=== PATIENT | female | born 1960 | race Two or more races ===

== ENCOUNTER 2019-11-04 21:46 | Inpatient (IN) | payer OTHER ==
[~2019-11-04] VITALS: Ht 162.6 cm; Wt 122.9 kg
[2019-11-04] MEDS ORDERED: ONDANSETRON PF 4 MG/2 ML VIAL. IVP ONE (22:15)
[2019-11-04] MEDS ORDERED: fentaNYL PF VIAL 100 MCG/2 ML VIAL IVP ONE (22:15)
[2019-11-04 22:20] LABS: BASO # 0.1 x10^3/uL (0.0-0.2); BASO % 0 % (0-3); EOS # 0.1 x10^3/uL (0.0-0.7); EOS % 1 % (0-3); HEMATOCRIT 38.6 % (36.0-47.0); LYMPH # 1.1 x10^3/uL (1.0-4.8); LYMPH % 9 % (24-48); MEAN CORPUSCULAR HEMOGLOBIN 32 pg (25-35); MEAN CORPUSCULAR HGB CONC 34 g/dL (31-37); MEAN CORPUSCULAR VOLUME 94 fL (79-100); MONO # 0.4 x10^3/uL (0.0-1.1); MONO % 3 % (0-9); NEUT # 10.2 x10^3/uL (1.8-7.7); NEUT % 87 % (31-73); PLATELET COUNT 197 x10^3/uL (140-400); RED BLOOD COUNT 4.12 x10^6/uL (3.50-5.40); RED CELL DISTRIBUTION WIDTH 13.6 % (11.5-14.5); WHITE BLOOD COUNT 11.8 x10^3/uL (4.0-11.0)
[2019-11-04 22:30] LABS: CREATININE 1.3 mg/dL (0.6-1.0); GFR 42.1; POTASSIUM 3.6 mmol/L (3.5-5.1)
[2019-11-04 22:31] LABS: BILIRUBIN,URINE NEGATIVE (NEG); CLARITY,URINE CLOUDY; COLOR,URINE YELLOW; NITRITE,URINE POSITIVE (NEG); PROTEIN,URINE 100 mg/dL (NEG-TRACE)
[2019-11-04 22:33] LABS: ALBUMIN 3.4 g/dL (3.4-5.0); ALBUMIN/GLOBULIN RATIO 0.8 (1.0-1.7); TOTAL BILIRUBIN 0.7 mg/dL (0.2-1.0); TOTAL PROTEIN 7.7 g/dL (6.4-8.2)
[2019-11-04 22:35] LABS: BACTERIA,URINE MANY /HPF (0-FEW); WBC,URINE TNTC /HPF (0-4)
[2019-11-04 22:36] LABS: SQUAMOUS EPITHELIAL CELL,UR MOD /LPF
--- NOTE | 2019-11-04 22:39 | RAD ---
CHEST AP ONLY 11/04/2019 9:53 PM INDICATION: Chest pain COMPARISON: None available TECHNIQUE: Portable frontal view of the chest is provided. FINDINGS: The cardiomediastinal silhouette is within normal limits. There is elevation right hemidiaphragm. Lungs are otherwise clear. There are no significant pleural effusions. There is no pulmonary vascular congestion. No pneumothorax. No suspicious osseous abnormality. IMPRESSION: There is no acute cardiopulmonary process. Electronically signed by: Nguyen Oliver MD (11/04/2019 10:36 PM) [facility]
[2019-11-04 23:00] LABS: % BANDS 9 % (0-9); % BASOS 1 % (0-3); % EOS 3 % (0-5); % LYMPHS 6 % (24-48); % MONOS 3 % (0-10); % SEGS 78 % (35-66); PLT ESTIMATE ADEQUATE (ADEQUATE)
[2019-11-05] MEDS ORDERED: MORPHINE SULFATE 4 MG/ML VIAL. IV ONE
[2019-11-05] MEDS ORDERED: cefTRIAXone IV Push 1 GM VIAL. IVP ONE
[2019-11-05] MEDS ORDERED: ACETAMINOPHEN 500 MG TABLET PO ONE (00:30)
--- NOTE | 2019-11-05 00:46 | RAD ---
EXAM: CT Abdomen and Pelvis without IV contrast CLINICAL HISTORY: Abdominal pain COMPARISON: none TECHNIQUE: Helical CT of the abdomen and pelvis was performed without the administration of IV contrast. Axial, coronal and sagittal reformatted images were generated. ---PQRS compliance statement - One or more of the following individualized dose reduction techniques were utilized for this study: 1. Automated exposure control 2. Adjustment of the mA and/or kV according to patient size 3. Use of iterative reconstruction technique--- FINDINGS: Lack of intravenous contrast limits evaluation of solid organs, vasculature, and lymph nodes. Lower chest: Subtle linear opacities in the lingula likely scarring/atelectasis. Abdomen and pelvis: Liver and biliary system: Hepatic hypoattenuation likely fatty liver. Liver is enlarged measuring approximately 21 cm in length. Cholecystectomy clips are seen. No biliary ductal dilatation. Spleen: Unremarkable Pancreas: Unremarkable Adrenal glands: Unremarkable Kidneys: There is mild infiltration about the right kidney and proximal right ureter. This is nonspecific but pyelonephritis/ureteritis may result in this appearance. This may correlate with urinalysis. No focal renal lesion. No hydronephrosis or hydroureter. Lymph nodes/retroperitoneum: No abdominal or pelvic lymphadenopathy. Vessels: Atherosclerotic calcifications of aorta are seen. Bowel/Peritoneal cavity: Changes of gastric surgery are seen. Moderate colonic stool content. Appendix is normal. No small or large bowel dilatation. No bowel obstruction. No abdominal or pelvic ascites. Abdominal wall: Unremarkable Bladder: Unremarkable Bones: Degenerative changes of the spine are seen. No aggressive osseous lesion. IMPRESSION: Infiltration about the right kidney and proximal right ureter is nonspecific but may be seen with pyelonephritis. This may correlate with urinalysis. Hepatomegaly and hepatic steatosis. No bowel obstruction. Changes of gastric bypass are seen. Electronically signed by: Alvaro Rivera MD (11/05/2019 12:43 AM) [facility]
[2019-11-05] MEDS ORDERED: ONDANSETRON PF 4 MG/2 ML VIAL. IV PRN (01:30)
--- NOTE | 2019-11-05 02:32 | PHYS DOC ---
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 Symptoms began yesterday and gradually progressed. Denies anterior chest pain, SOB, and cough. No abdominal pain, No hematuria, history kidney stones. Patient menopausal. Arrives by EMS[] Review of Systems Review of Systems ROS as per HPI All other systems were reviewed and found to be within normal limits, except as documented in this note. Current Medications Current Medications Current Medications Medications (Trade) Dose Ordered Sig/Margie Start Time Stop Time Status Last Admin Dose Admin Acetaminophen (Tylenol) 1,000 mg 1X ONCE 11/05/19 00:30 11/05/19 00:31 DC 11/05/19 00:19 1,000 MG Ceftriaxone Sodium (Rocephin) 1 gm 1X ONCE 11/05/19 00:00 11/05/19 00:02 DC 11/05/19 00:18 1 GM Fentanyl Citrate (Fentanyl 2ml Vial) 50 mcg 1X ONCE 11/04/19 22:15 11/04/19 22:16 DC 11/04/19 22:12 50 MCG Morphine Sulfate (Morphine Sulfate) 2 mg PRN Q2HR PRN 11/05/19 01:30 11/06/19 01:29 Ondansetron HCl (Zofran) 4 mg PRN Q8HRS PRN 11/05/19 01:30 11/06/19 01:29 Sodium Chloride 1,000 ml @ 125 mls/hr Q8H 11/05/19 01:30 11/06/19 01:29 Allergies Allergies Allergies Coded Allergies Type Severity Reaction Last Updated Verified Penicillins Allergy Unknown Hives. 07/31/15 Yes Physical Exam Physical Exam Constitutional: Well developed, anxiosu, moderate distress secondary to pain. [] HENT: Normocephalic, atraumatic, bilateral external ears normal, oropharynx moist, no oral exudates, nose normal. [] Eyes: PERRLA, EOMI, conjunctiva normal, no discharge. [] Neck: Normal range of motion, no tenderness, supple, no stridor. [] Cardiovascular:Heart rate regular rhythm, no murmur [] Lungs & Thorax: Bilateral breath sounds clear to auscultation [] Abdomen: Bowel sounds normal, soft, R cva tenderness, no masses, no pulsatile masses. [] Skin: Warm, dry, no erythema, no rash. [] Back: No tenderness, no CVA tenderness. [] Extremities: No tenderness, no cyanosis, no clubbing, ROM intact, no edema. [] Neurologic: Alert and oriented X 3, normal motor function, normal sensory function, no focal deficits noted. [] Psychologic: Affect normal, judgement normal, mood normal. [] Current Patient Data Vital Signs Vital Signs Date Time Temp Pulse Resp B/P (MAP) Pulse Ox O2 Delivery O2 Flow Rate FiO2 11/05/19 01:10 100.5 100.5 11/05/19 00:45 88 19 171/68 (102) 96 Room Air Lab Values Laboratory Tests Test 11/04/19 22:05 11/04/19 22:20 White Blood Count 11.8 x10^3/uL (4.0-11.0) H Red Blood Count 4.12 x10^6/uL (3.50-5.40) Hemoglobin 13.0 g/dL (12.0-15.5) Hematocrit 38.6 % (36.0-47.0) Mean Corpuscular Volume 94 fL (79-100) Mean Corpuscular Hemoglobin 32 pg (25-35) Mean Corpuscular Hemoglobin Concent 34 g/dL (31-37) Red Cell Distribution Width 13.6 % (11.5-14.5) Platelet Count 197 x10^3/uL (140-400) Neutrophils (%) (Auto) 87 % (31-73) H Lymphocytes (%) (Auto) 9 % (24-48) L Monocytes (%) (Auto) 3 % (0-9) Eosinophils (%) (Auto) 1 % (0-3) Basophils (%) (Auto) 0 % (0-3) Neutrophils # (Auto) 10.2 x10^3/uL (1.8-7.7) H Lymphocytes # (Auto) 1.1 x10^3/uL (1.0-4.8) Monocytes # (Auto) 0.4 x10^3/uL (0.0-1.1) Eosinophils # (Auto) 0.1 x10^3/uL (0.0-0.7) Basophils # (Auto) 0.1 x10^3/uL (0.0-0.2) Segmented Neutrophils % 78 % (35-66) H Band Neutrophils % 9 % (0-9) Lymphocytes % 6 % (24-48) L Monocytes % 3 % (0-10) Eosinophils % 3 % (0-5) Basophils % 1 % (0-3) Platelet Estimate Adequate (ADEQUATE) Sodium Level 139 mmol/L (136-145) Potassium Level 3.6 mmol/L (3.5-5.1) Chloride Level 102 mmol/L (98-107) Carbon Dioxide Level 28 mmol/L (21-32) Anion Gap 9 (6-14) Blood Urea Nitrogen 18 mg/dL (7-20) Creatinine 1.3 mg/dL (0.6-1.0) H Estimated GFR (Cockcroft-Gault) 42.1 BUN/Creatinine Ratio 14 (6-20) Glucose Level 179 mg/dL (70-99) H Calcium Level 9.0 mg/dL (8.5-10.1) Total Bilirubin 0.7 mg/dL (0.2-1.0) Aspartate Amino Transferase (AST) 30 U/L (15-37) Alanine Aminotransferase (ALT) 34 U/L (14-59) Alkaline Phosphatase 108 U/L (46-116) Troponin I Quantitative < 0.017 ng/mL (0.000-0.055) Total Protein 7.7 g/dL (6.4-8.2) Albumin 3.4 g/dL (3.4-5.0) Albumin/Globulin Ratio 0.8 (1.0-1.7) L Lipase 56 U/L (73-393) L Urine Collection Type Unknown Urine Color Yellow Urine Clarity Cloudy Urine pH 6.0 (<5.0-8.0) Urine Specific [place] 1.020 (1.000-1.030) Urine Protein 100 mg/dL (NEG-TRACE) Urine Glucose (UA) Negative mg/dL (NEG) Urine Ketones (Stick) Negative mg/dL (NEG) Urine Blood Trace (NEG) Urine Nitrite Positive (NEG) Urine Bilirubin Negative (NEG) Urine Urobilinogen Dipstick 1.0 mg/dL (0.2 mg/dL) Urine Leukocyte Esterase Moderate (NEG) Urine RBC 1-2 /HPF (0-2) Urine WBC Tntc /HPF (0-4) Urine Squamous Epithelial Cells Mod /LPF Urine Bacteria Many /HPF (0-FEW) Urine Mucus Mod /LPF Laboratory Tests 11/04/19 22:05 Laboratory Tests 11/04/19 22:05 EKG EKG [] Radiology/Procedures Radiology/Procedures [CT abd/pelvis: R pyelonephriits] Course & Med Decision Making Course & Med Decision Making Pertinent Labs and Imaging studies reviewed. (See chart for details) IVF, abx, pain medications given. Pateint febrile and symptomatic. Will admit to the hospitalist service. ] Dragon Disclaimer Dragon Disclaimer This electronic medical record was generated, in whole or in part, using a voice recognition dictation system. Departure Departure Impression: Primary Impression: Pyelonephritis Disposition: ADMITTED INPATIENT Condition: STABLE Referrals: UNKNOWN PCP NAME (PCP) ENZO ADKINS DO Nov 05, 2019 02:32
[2019-11-05 03:00] VITALS: BP 93/47
[2019-11-05] MEDS: IV NORMAL SALINE 1000ML BAG 1,000 ML IV SCH ×3 (03:28→15:31)
[2019-11-05] MEDS: MORPHINE SULFATE 2 MG/ML VIAL. IV PRN ×2 (03:29→08:32)
--- NOTE | 2019-11-05 03:49 | NUR ---
Delicia to eat healthy Addendum: 11/05/19 at 0356 by FRAN HEDRICK RN Amended: Links added.
[2019-11-05] MEDS ORDERED: MULT-505 PO (04:42)
--- NOTE | 2019-11-05 05:22 | NUR ---
Pt. arrived on unit at 0306 by bed from ER. Pt. is wearing 2l NC and complains of pain being 9/10. Call light within reach with bed in lowest position. Will continue to monitor.
--- NOTE | 2019-11-05 05:52 | EKG ---
[facility] [address] [place] [address] Test Date: 2019-11-04 Test Time: 21:58:18 Pat Name: DIANA RUBY Department: Room: 424 1 Gender: F Portrait Photographer: : 1960 Requested By: ENZO ADKINS Order Number: [id number] Reading MD: Hao Villagomez Measurements Intervals [place] Rate: 79 P: 42 ND: 160 QRS: -19 QRSD: 80 T: 28 QT: 370 QTc: 430 Interpretive Statements SINUS RHYTHM LEFTWARD AXIS INCOMPLETE RIGHT BUNDLE BRANCH BLOCK NON SPECIFIC T ABNORMALITY Electronically Signed On 11-06-2019 10:15:35 CDT by Hao Villagomez
[2019-11-05 07:00] VITALS: BP 104/57
--- NOTE | 2019-11-05 08:46 | PDOC1 ---
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 She called an ambulance last night when she had low-grade fever, chills, sweats, nausea shortness and acute R flank/post chest pain. She had a much higher fever here, T 103 in the ER> her symptoms began yesterday and worsened during the day. Denies anterior chest pain, SOB, and cough. no travel, no cough, no sick contacts Past Medical History Cardiovascular: No pertinent hx Pulmonary: No pertinent hx Hepatobiliary: No pertinent hx Psych: No pertinent hx ENT: No pertinent hx Renal/: No pertinent hx Endocrine: Other (obese, had iron deficiency post op) Dermatology: No pertinent hx Past Surgical History Past Surgical History: Other (gastic bypass) Social History Smoke: No ALCOHOL: none Drugs: None Current Medications Current Medications Current Medications Fentanyl Citrate (Fentanyl 2ml Vial) 50 mcg 1X ONCE IVP Last administered on 11/04/19at 22:12; Start 11/04/19 at 22:15; Stop 11/04/19 at 22:16; Status DC Ondansetron HCl (Zofran) 4 mg 1X ONCE IVP Last administered on 11/04/19at 22:11; Start 11/04/19 at 22:15; Stop 11/04/19 at 22:16; Status DC Morphine Sulfate (Morphine Sulfate) 2 mg 1X ONCE IV Last administered on 11/05/19at 00:19; Start 11/05/19 at 00:00; Stop 11/05/19 at 00:02; Status DC Ceftriaxone Sodium (Rocephin) 1 gm 1X ONCE IVP Last administered on 11/05/19at 00:18; Start 11/05/19 at 00:00; Stop 11/05/19 at 00:02; Status DC Acetaminophen (Tylenol) 1,000 mg 1X ONCE PO Last administered on 11/05/19at 00:19; Start 11/05/19 at 00:30; Stop 11/05/19 at 00:31; Status DC Ondansetron HCl (Zofran) 4 mg PRN Q8HRS PRN IV NAUSEA/VOMITING; Start 11/05/19 at 01:30; Stop 11/06/19 at 01:29 Morphine Sulfate (Morphine Sulfate) 2 mg PRN Q2HR PRN IV PAIN Last administered on 11/05/19at 03:29; Start 11/05/19 at 01:30; Stop 11/06/19 at 01:29 Sodium Chloride 1,000 ml @ 125 mls/hr Q8H IV Last administered on 11/05/19at 03:28; Start 11/05/19 at 01:30; Stop 11/06/19 at 01:29 Active Scripts Active Reported Once Daily (Multivitamin) 1 Each Tablet 1 Tab PO DAILY 30 Days Allergies Allergies: Coded Allergies: Penicillins (Verified Allergy, Unknown, Hives., 07/31/15) ROS General: YES: Chills, Fatigue, Malaise, Appetite PSYCHOLOGICAL ROS: YES: Sleep disturbances; No: Anxiety, Behavioral Disorder, Concentration difficultie, Decreased libido, Depression, Disorientation, Hallucinations, Hostility, Irritablity, Memory difficulties, Mood Swings, Obsessive thoughts, Physical abuse, Sexual abuse, Suicidal ideation, Other Eyes: No Blurry vision, No Decreased vision, No Double vision, No Dry eyes, No Excessive tearing, No Eye Pain, No Itchy Eyes, No Loss of vision, No Photophobia, No Scotomata, No Uses contacts, No Uses glasses, No Other HEENT: No: Heacaches, Visual Changes, Hearing change, Nasal congestion, Nasal discharge, Oral lesions, Sinus pain, Sore Throat, Epistaxis, Sneezing, Snoring, Tinnitus, Vertigo, Vocal changes, Other Respiratory: No: Cough, Hemoptysis, Orthopnea, Pleuritic Pain, Shortness of breath, SOB with excertion, Sputum Changes, Stridor, Tachypnea, Wheezing, Other Cardiovascular: yes Edema; No Chest Pain, No Palpitations, No Orthopnea, No Paroxysmal Noc. Dyspnea, No Lt Headedness, No Other Gastrointestinal: Yes Nausea Genitourinary: YES Dysuria, YES Pain, YES Flank Pain; No Frequency, No Incontinence, No Hematuria, No Retention, No Discharge, No Urgency, No Other, No , No , No , No , No , No , No Musculoskeletal: No Gait Disturbance, No Joint Pain, No Joint Stiffness, No Joint Swelling, No Muscle Pain, No Muscular Weakness, No Pain In:, No Swelling In:, No Other Neurological: No Behavorial Changes, No Bowel/Bladder ControlChng, No Confusion, No Dizziness, No Gait Disturbance, No Headaches, No Impaired Coord/balance, No Memory Loss, No Numbness/Tingling, No Seizures, No Speech Problems, No Tremors, No Visual Changes, No Weakness, No Other Skin: Yes Dry Skin; No Eczema, No Hair Changes, No Lumps, No Mole Changes, No Mottling, No Nail Changes, No Pruritus, No Rash, No Skin Lesion Changes, No Other, No Acne Physical Exam Physical Exam pain 7/10, getting IV morphine General: Alert, Oriented X3, Cooperative, mild distress HEENT: Atraumatic, PERRLA, EOMI, Mucous membr. moist/pink Lungs: Clear to auscultation, Normal air movement Heart: S1S2, no murmurs Extremities: No cyanosis, Other (tr edema, r worse then left pedal) Skin: No rashes, No breakdown Neuro: Normal speech, Sensation intact Psych/Mental Status: Mental status NL, Mood NL Vitals Vitals Vital Signs Date Time Temp Pulse Resp B/P (MAP) Pulse Ox O2 Delivery O2 Flow Rate FiO2 11/05/19 07:00 97.4 70 18 104/57 (73) 97 Nasal Cannula 2.0 97.4 Labs Labs Laboratory Tests Test 11/04/19 22:05 11/04/19 22:20 White Blood Count 11.8 x10^3/uL (4.0-11.0) Red Blood Count 4.12 x10^6/uL (3.50-5.40) Hemoglobin 13.0 g/dL (12.0-15.5) Hematocrit 38.6 % (36.0-47.0) Mean Corpuscular Volume 94 fL (79-100) Mean Corpuscular Hemoglobin 32 pg (25-35) Mean Corpuscular Hemoglobin Concent 34 g/dL (31-37) Red Cell Distribution Width 13.6 % (11.5-14.5) Platelet Count 197 x10^3/uL (140-400) Neutrophils (%) (Auto) 87 % (31-73) Lymphocytes (%) (Auto) 9 % (24-48) Monocytes (%) (Auto) 3 % (0-9) Eosinophils (%) (Auto) 1 % (0-3) Basophils (%) (Auto) 0 % (0-3) Neutrophils # (Auto) 10.2 x10^3/uL (1.8-7.7) Lymphocytes # (Auto) 1.1 x10^3/uL (1.0-4.8) Monocytes # (Auto) 0.4 x10^3/uL (0.0-1.1) Eosinophils # (Auto) 0.1 x10^3/uL (0.0-0.7) Basophils # (Auto) 0.1 x10^3/uL (0.0-0.2) Segmented Neutrophils % 78 % (35-66) Band Neutrophils % 9 % (0-9) Lymphocytes % 6 % (24-48) Monocytes % 3 % (0-10) Eosinophils % 3 % (0-5) Basophils % 1 % (0-3) Platelet Estimate Adequate (ADEQUATE) Sodium Level 139 mmol/L (136-145) Potassium Level 3.6 mmol/L (3.5-5.1) Chloride Level 102 mmol/L (98-107) Carbon Dioxide Level 28 mmol/L (21-32) Anion Gap 9 (6-14) Blood Urea Nitrogen 18 mg/dL (7-20) Creatinine 1.3 mg/dL (0.6-1.0) Estimated GFR (Cockcroft-Gault) 42.1 BUN/Creatinine Ratio 14 (6-20) Glucose Level 179 mg/dL (70-99) Calcium Level 9.0 mg/dL (8.5-10.1) Total Bilirubin 0.7 mg/dL (0.2-1.0) Aspartate Amino Transf (AST/SGOT) 30 U/L (15-37) Alanine Aminotransferase (ALT/SGPT) 34 U/L (14-59) Alkaline Phosphatase 108 U/L (46-116) Troponin I Quantitative < 0.017 ng/mL (0.000-0.055) Total Protein 7.7 g/dL (6.4-8.2) Albumin 3.4 g/dL (3.4-5.0) Albumin/Globulin Ratio 0.8 (1.0-1.7) Lipase 56 U/L (73-393) Urine Collection Type Unknown Urine Color Yellow Urine Clarity Cloudy Urine pH 6.0 (<5.0-8.0) Urine Specific [place] 1.020 (1.000-1.030) Urine Protein 100 mg/dL (NEG-TRACE) Urine Glucose (UA) Negative mg/dL (NEG) Urine Ketones (Stick) Negative mg/dL (NEG) Urine Blood Trace (NEG) Urine Nitrite Positive (NEG) Urine Bilirubin Negative (NEG) Urine Urobilinogen Dipstick 1.0 mg/dL (0.2 mg/dL) Urine Leukocyte Esterase Moderate (NEG) Urine RBC 1-2 /HPF (0-2) Urine WBC Tntc /HPF (0-4) Urine Squamous Epithelial Cells Mod /LPF Urine Bacteria Many /HPF (0-FEW) Urine Mucus Mod /LPF Laboratory Tests Test 11/04/19 22:05 11/04/19 22:20 White Blood Count 11.8 x10^3/uL (4.0-11.0) Red Blood Count 4.12 x10^6/uL (3.50-5.40) Hemoglobin 13.0 g/dL (12.0-15.5) Hematocrit 38.6 % (36.0-47.0) Mean Corpuscular Volume 94 fL (79-100) Mean Corpuscular Hemoglobin 32 pg (25-35) Mean Corpuscular Hemoglobin Concent 34 g/dL (31-37) Red Cell Distribution Width 13.6 % (11.5-14.5) Platelet Count 197 x10^3/uL (140-400) Neutrophils (%) (Auto) 87 % (31-73) Lymphocytes (%) (Auto) 9 % (24-48) Monocytes (%) (Auto) 3 % (0-9) Eosinophils (%) (Auto) 1 % (0-3) Basophils (%) (Auto) 0 % (0-3) Neutrophils # (Auto) 10.2 x10^3/uL (1.8-7.7) Lymphocytes # (Auto) 1.1 x10^3/uL (1.0-4.8) Monocytes # (Auto) 0.4 x10^3/uL (0.0-1.1) Eosinophils # (Auto) 0.1 x10^3/uL (0.0-0.7) Basophils # (Auto) 0.1 x10^3/uL (0.0-0.2) Segmented Neutrophils % 78 % (35-66) Band Neutrophils % 9 % (0-9) Lymphocytes % 6 % (24-48) Monocytes % 3 % (0-10) Eosinophils % 3 % (0-5) Basophils % 1 % (0-3) Platelet Estimate Adequate (ADEQUATE) Sodium Level 139 mmol/L (136-145) Potassium Level 3.6 mmol/L (3.5-5.1) Chloride Level 102 mmol/L (98-107) Carbon Dioxide Level 28 mmol/L (21-32) Anion Gap 9 (6-14) Blood Urea Nitrogen 18 mg/dL (7-20) Creatinine 1.3 mg/dL (0.6-1.0) Estimated GFR (Cockcroft-Gault) 42.1 BUN/Creatinine Ratio 14 (6-20) Glucose Level 179 mg/dL (70-99) Calcium Level 9.0 mg/dL (8.5-10.1) Total Bilirubin 0.7 mg/dL (0.2-1.0) Aspartate Amino Transf (AST/SGOT) 30 U/L (15-37) Alanine Aminotransferase (ALT/SGPT) 34 U/L (14-59) Alkaline Phosphatase 108 U/L (46-116) Troponin I Quantitative < 0.017 ng/mL (0.000-0.055) Total Protein 7.7 g/dL (6.4-8.2) Albumin 3.4 g/dL (3.4-5.0) Albumin/Globulin Ratio 0.8 (1.0-1.7) Lipase 56 U/L (73-393) Urine Collection Type Unknown Urine Color Yellow Urine Clarity Cloudy Urine pH 6.0 (<5.0-8.0) Urine Specific [place] 1.020 (1.000-1.030) Urine Protein 100 mg/dL (NEG-TRACE) Urine Glucose (UA) Negative mg/dL (NEG) Urine Ketones (Stick) Negative mg/dL (NEG) Urine Blood Trace (NEG) Urine Nitrite Positive (NEG) Urine Bilirubin Negative (NEG) Urine Urobilinogen Dipstick 1.0 mg/dL (0.2 mg/dL) Urine Leukocyte Esterase Moderate (NEG) Urine RBC 1-2 /HPF (0-2) Urine WBC Tntc /HPF (0-4) Urine Squamous Epithelial Cells Mod /LPF Urine Bacteria Many /HPF (0-FEW) Urine Mucus Mod /LPF VTE Prophylaxis Ordered VTE Prophylaxis Devices: No VTE Pharmacological Prophylaxi: Yes Assessment/Plan Assessment/Plan back pain sepsis, UTI pyelonephritis, morbid obesity, BMI 47, s/p gastric bypass, weight returned ALY ARIAS MD Nov 05, 2019 08:46
[2019-11-05] MEDS: ENOXAPARIN 40 MG/0.4 ML SYRINGE. SQ SCH ×2 (10:22→21:57)
--- NOTE | 2019-11-05 10:29 | NUR ---
SW following. 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 Currently requiring 2L oxygen, IV rocephin, clear liquid diet. SW will continue to follow for any discharge planning needs.
[2019-11-05 11:50] VITALS: BP 97/64
[2019-11-05] MEDS: oxyCODONE/APAP 5/325 1 TAB TABLET PO PRN ×2 (13:32→22:05)
[2019-11-05 15:00] VITALS: BP 110/50
[2019-11-05 19:00] VITALS: BP 159/81
[2019-11-05] MEDS ORDERED: cefTRIAXone IV Push 1 GM VIAL. IVP SCH (21:00)
[2019-11-05 23:00] VITALS: BP 104/48
[2019-11-06 03:00] VITALS: BP 118/68
[2019-11-06] MEDS: oxyCODONE/APAP 5/325 1 TAB TABLET PO PRN ×2 (03:33→23:26)
[2019-11-06 04:45] LABS: BASO # 0.1 x10^3/uL (0.0-0.2); BASO % 1 % (0-3); EOS # 0.1 x10^3/uL (0.0-0.7); EOS % 2 % (0-3); HEMATOCRIT 33.1 % (36.0-47.0); HEMOGLOBIN 11.2 g/dL (12.0-15.5); LYMPH # 1.4 x10^3/uL (1.0-4.8); LYMPH % 16 % (24-48); MEAN CORPUSCULAR HEMOGLOBIN 32 pg (25-35); MEAN CORPUSCULAR HGB CONC 34 g/dL (31-37); MEAN CORPUSCULAR VOLUME 94 fL (79-100); MONO # 0.7 x10^3/uL (0.0-1.1); MONO % 8 % (0-9); NEUT # 6.3 x10^3/uL (1.8-7.7); NEUT % 74 % (31-73); PLATELET COUNT 155 x10^3/uL (140-400); RED BLOOD COUNT 3.53 x10^6/uL (3.50-5.40); RED CELL DISTRIBUTION WIDTH 13.6 % (11.5-14.5); WHITE BLOOD COUNT 8.6 x10^3/uL (4.0-11.0)
[2019-11-06 04:57] LABS: CALCIUM 8.3 mg/dL (8.5-10.1); CREATININE 0.9 mg/dL (0.6-1.0); GFR 64.3; POTASSIUM 3.7 mmol/L (3.5-5.1)
[2019-11-06 07:00] VITALS: BP 112/56
[2019-11-06] MEDS: ENOXAPARIN 40 MG/0.4 ML SYRINGE. SQ SCH ×2 (08:33→21:22)
[2019-11-06] MEDS: ACETAMINOPHEN 325 MG TABLET. PO PRN ×3 (10:13→18:57)
--- NOTE | 2019-11-06 10:40 | PDOC ---
PROGRESS NOTES Chief Complaint Chief Complaint sepsis, T 102 again today UTI, started on rocephin on admit, pyelonephritis, with severe back and flank pain morbid obesity, BMI 47, s/p gastric bypass, weight returned History of Present Illness History of Present Illness admit for above, started on rocephin, white count better today, but high fever, PCN allergy is hives, tolerated Rocephin fine. discussed with Pharmacy, will start levaquin, but will consult ID, I am worried about bacteremia, blood culture x2 now, Vitals Vitals Vital Signs Date Time Temp Pulse Resp B/P (MAP) Pulse Ox O2 Delivery O2 Flow Rate FiO2 11/06/19 07:00 99.6 68 17 112/56 (74) 92 Room Air 99.6 11/05/19 07:00 2.0 Physical Exam Physical Exam lethargy and malaise, appears ill, skin is warm to touch and flushed General: Alert, Oriented X3, Cooperative, mild distress Heart: Regular rate (tachy) Extremities: No cyanosis, Other (tr edema, r worse then left pedal) Skin: No rashes, No breakdown Labs LABS Laboratory Tests Test 11/06/19 03:17 White Blood Count 8.6 x10^3/uL (4.0-11.0) Red Blood Count 3.53 x10^6/uL (3.50-5.40) Hemoglobin 11.2 g/dL (12.0-15.5) Hematocrit 33.1 % (36.0-47.0) Mean Corpuscular Volume 94 fL (79-100) Mean Corpuscular Hemoglobin 32 pg (25-35) Mean Corpuscular Hemoglobin Concent 34 g/dL (31-37) Red Cell Distribution Width 13.6 % (11.5-14.5) Platelet Count 155 x10^3/uL (140-400) Neutrophils (%) (Auto) 74 % (31-73) Lymphocytes (%) (Auto) 16 % (24-48) Monocytes (%) (Auto) 8 % (0-9) Eosinophils (%) (Auto) 2 % (0-3) Basophils (%) (Auto) 1 % (0-3) Neutrophils # (Auto) 6.3 x10^3/uL (1.8-7.7) Lymphocytes # (Auto) 1.4 x10^3/uL (1.0-4.8) Monocytes # (Auto) 0.7 x10^3/uL (0.0-1.1) Eosinophils # (Auto) 0.1 x10^3/uL (0.0-0.7) Basophils # (Auto) 0.1 x10^3/uL (0.0-0.2) Sodium Level 138 mmol/L (136-145) Potassium Level 3.7 mmol/L (3.5-5.1) Chloride Level 105 mmol/L (98-107) Carbon Dioxide Level 27 mmol/L (21-32) Anion Gap 6 (6-14) Blood Urea Nitrogen 9 mg/dL (7-20) Creatinine 0.9 mg/dL (0.6-1.0) Estimated GFR (Cockcroft-Gault) 64.3 Glucose Level 124 mg/dL (70-99) Calcium Level 8.3 mg/dL (8.5-10.1) Review of Systems Review of Systems weakness, nausea, Comment Review of Relevant I have reviewed the following items jabier (where applicable) has been applied. Labs Laboratory Tests Test 11/04/19 22:05 11/04/19 22:20 11/06/19 03:17 White Blood Count 11.8 x10^3/uL (4.0-11.0) 8.6 x10^3/uL (4.0-11.0) Red Blood Count 4.12 x10^6/uL (3.50-5.40) 3.53 x10^6/uL (3.50-5.40) Hemoglobin 13.0 g/dL (12.0-15.5) 11.2 g/dL (12.0-15.5) Hematocrit 38.6 % (36.0-47.0) 33.1 % (36.0-47.0) Mean Corpuscular Volume 94 fL (79-100) 94 fL (79-100) Mean Corpuscular Hemoglobin 32 pg (25-35) 32 pg (25-35) Mean Corpuscular Hemoglobin Concent 34 g/dL (31-37) 34 g/dL (31-37) Red Cell Distribution Width 13.6 % (11.5-14.5) 13.6 % (11.5-14.5) Platelet Count 197 x10^3/uL (140-400) 155 x10^3/uL (140-400) Neutrophils (%) (Auto) 87 % (31-73) 74 % (31-73) Lymphocytes (%) (Auto) 9 % (24-48) 16 % (24-48) Monocytes (%) (Auto) 3 % (0-9) 8 % (0-9) Eosinophils (%) (Auto) 1 % (0-3) 2 % (0-3) Basophils (%) (Auto) 0 % (0-3) 1 % (0-3) Neutrophils # (Auto) 10.2 x10^3/uL (1.8-7.7) 6.3 x10^3/uL (1.8-7.7) Lymphocytes # (Auto) 1.1 x10^3/uL (1.0-4.8) 1.4 x10^3/uL (1.0-4.8) Monocytes # (Auto) 0.4 x10^3/uL (0.0-1.1) 0.7 x10^3/uL (0.0-1.1) Eosinophils # (Auto) 0.1 x10^3/uL (0.0-0.7) 0.1 x10^3/uL (0.0-0.7) Basophils # (Auto) 0.1 x10^3/uL (0.0-0.2) 0.1 x10^3/uL (0.0-0.2) Segmented Neutrophils % 78 % (35-66) Band Neutrophils % 9 % (0-9) Lymphocytes % 6 % (24-48) Monocytes % 3 % (0-10) Eosinophils % 3 % (0-5) Basophils % 1 % (0-3) Platelet Estimate Adequate (ADEQUATE) Sodium Level 139 mmol/L (136-145) 138 mmol/L (136-145) Potassium Level 3.6 mmol/L (3.5-5.1) 3.7 mmol/L (3.5-5.1) Chloride Level 102 mmol/L (98-107) 105 mmol/L (98-107) Carbon Dioxide Level 28 mmol/L (21-32) 27 mmol/L (21-32) Anion Gap 9 (6-14) 6 (6-14) Blood Urea Nitrogen 18 mg/dL (7-20) 9 mg/dL (7-20) Creatinine 1.3 mg/dL (0.6-1.0) 0.9 mg/dL (0.6-1.0) Estimated GFR (Cockcroft-Gault) 42.1 64.3 BUN/Creatinine Ratio 14 (6-20) Glucose Level 179 mg/dL (70-99) 124 mg/dL (70-99) Calcium Level 9.0 mg/dL (8.5-10.1) 8.3 mg/dL (8.5-10.1) Total Bilirubin 0.7 mg/dL (0.2-1.0) Aspartate Amino Transf (AST/SGOT) 30 U/L (15-37) Alanine Aminotransferase (ALT/SGPT) 34 U/L (14-59) Alkaline Phosphatase 108 U/L (46-116) Troponin I Quantitative < 0.017 ng/mL (0.000-0.055) Total Protein 7.7 g/dL (6.4-8.2) Albumin 3.4 g/dL (3.4-5.0) Albumin/Globulin Ratio 0.8 (1.0-1.7) Lipase 56 U/L (73-393) Urine Collection Type Unknown Urine Color Yellow Urine Clarity Cloudy Urine pH 6.0 (<5.0-8.0) Urine Specific [place] 1.020 (1.000-1.030) Urine Protein 100 mg/dL (NEG-TRACE) Urine Glucose (UA) Negative mg/dL (NEG) Urine Ketones (Stick) Negative mg/dL (NEG) Urine Blood Trace (NEG) Urine Nitrite Positive (NEG) Urine Bilirubin Negative (NEG) Urine Urobilinogen Dipstick 1.0 mg/dL (0.2 mg/dL) Urine Leukocyte Esterase Moderate (NEG) Urine RBC 1-2 /HPF (0-2) Urine WBC Tntc /HPF (0-4) Urine Squamous Epithelial Cells Mod /LPF Urine Bacteria Many /HPF (0-FEW) Urine Mucus Mod /LPF Laboratory Tests Test 11/06/19 03:17 White Blood Count 8.6 x10^3/uL (4.0-11.0) Red Blood Count 3.53 x10^6/uL (3.50-5.40) Hemoglobin 11.2 g/dL (12.0-15.5) Hematocrit 33.1 % (36.0-47.0) Mean Corpuscular Volume 94 fL (79-100) Mean Corpuscular Hemoglobin 32 pg (25-35) Mean Corpuscular Hemoglobin Concent 34 g/dL (31-37) Red Cell Distribution Width 13.6 % (11.5-14.5) Platelet Count 155 x10^3/uL (140-400) Neutrophils (%) (Auto) 74 % (31-73) Lymphocytes (%) (Auto) 16 % (24-48) Monocytes (%) (Auto) 8 % (0-9) Eosinophils (%) (Auto) 2 % (0-3) Basophils (%) (Auto) 1 % (0-3) Neutrophils # (Auto) 6.3 x10^3/uL (1.8-7.7) Lymphocytes # (Auto) 1.4 x10^3/uL (1.0-4.8) Monocytes # (Auto) 0.7 x10^3/uL (0.0-1.1) Eosinophils # (Auto) 0.1 x10^3/uL (0.0-0.7) Basophils # (Auto) 0.1 x10^3/uL (0.0-0.2) Sodium Level 138 mmol/L (136-145) Potassium Level 3.7 mmol/L (3.5-5.1) Chloride Level 105 mmol/L (98-107) Carbon Dioxide Level 27 mmol/L (21-32) Anion Gap 6 (6-14) Blood Urea Nitrogen 9 mg/dL (7-20) Creatinine 0.9 mg/dL (0.6-1.0) Estimated GFR (Cockcroft-Gault) 64.3 Glucose Level 124 mg/dL (70-99) Calcium Level 8.3 mg/dL (8.5-10.1) Medications Current Medications Fentanyl Citrate (Fentanyl 2ml Vial) 50 mcg 1X ONCE IVP Last administered on 11/04/19at 22:12; Start 11/04/19 at 22:15; Stop 11/04/19 at 22:16; Status DC Ondansetron HCl (Zofran) 4 mg 1X ONCE IVP Last administered on 11/04/19at 22:11; Start 11/04/19 at 22:15; Stop 11/04/19 at 22:16; Status DC Morphine Sulfate (Morphine Sulfate) 2 mg 1X ONCE IV Last administered on 11/05/19at 00:19; Start 11/05/19 at 00:00; Stop 11/05/19 at 00:02; Status DC Ceftriaxone Sodium (Rocephin) 1 gm 1X ONCE IVP Last administered on 11/05/19at 00:18; Start 11/05/19 at 00:00; Stop 11/05/19 at 00:02; Status DC Acetaminophen (Tylenol) 1,000 mg 1X ONCE PO Last administered on 11/05/19at 00:19; Start 11/05/19 at 00:30; Stop 11/05/19 at 00:31; Status DC Ondansetron HCl (Zofran) 4 mg PRN Q8HRS PRN IV NAUSEA/VOMITING; Start 11/05/19 at 01:30; Stop 11/06/19 at 01:29; Status DC Morphine Sulfate (Morphine Sulfate) 2 mg PRN Q2HR PRN IV PAIN Last administered on 11/05/19at 08:32; Start 11/05/19 at 01:30; Stop 11/06/19 at 01:29; Status DC Sodium Chloride 1,000 ml @ 125 mls/hr Q8H IV Last administered on 11/05/19at 08:33; Start 11/05/19 at 01:30; Stop 11/06/19 at 01:29; Status DC Ceftriaxone Sodium (Rocephin) 1 gm Q24H IVP Last administered on 11/05/19at 21:52; Start 11/05/19 at 21:00; Stop 11/06/19 at 10:14; Status DC Oxycodone/ Acetaminophen (Percocet 5/325) 1 tab PRN Q4HRS PRN PO PAIN Last administered on 11/06/19at 03:33; Start 11/05/19 at 08:45 Enoxaparin Sodium (Lovenox Per Pharmacy Prophylaxis Dosing) 1 each PRN DAILY PRN MC SEE COMMENTS; Start 11/05/19 at 08:45 Enoxaparin Sodium (Lovenox 40mg Syringe) 40 mg BID SQ Last administered on 11/06/19at 08:33; Start 11/05/19 at 09:00 Acetaminophen (Tylenol) 650 mg PRN Q6HRS PRN PO MILD PAIN / TEMP Last administered on 11/06/19at 10:13; Start 11/06/19 at 08:45 Levofloxacin/ Dextrose 100 ml @ 100 mls/hr Q24H IV ; Start 11/06/19 at 10:30 Active Scripts Active Reported Once Daily (Multivitamin) 1 Each Tablet 1 Tab PO DAILY 30 Days Vitals/I & O Vital Sign - Last 24 Hours 11/05/19 11/05/19 11/05/19 11/05/19 11:50 15:00 19:00 20:00 Temp 99.4 98.6 99.3 99.4 98.6 99.3 Pulse 90 71 75 Resp B/P (MAP) 97/64 (75) 110/50 (70) 159/81 (107) Pulse Ox 95 91 98 O2 Delivery Room Air Room Air Room Air Room Air 11/05/19 11/06/19 11/06/19 11/06/19 23:00 03:00 03:33 07:00 Temp 98.6 98.7 99.6 98.6 98.7 99.6 Pulse 80 65 68 Resp 17 B/P (MAP) 104/48 (66) 118/68 (85) 112/56 (74) Pulse Ox 90 90 92 O2 Delivery Room Air Room Air Room Air Room Air Intake and Output 11/05/19 11/05/19 11/06/19 15:00 23:00 07:00 Intake Total 460 ml 240 ml 50 ml Balance 460 ml 240 ml 50 ml ALY ARIAS MD Nov 06, 2019 10:40
[2019-11-06 11:01] VITALS: BP 130/71
--- NOTE | 2019-11-06 12:07 | PDOC ---
Infectious Disease Note Vital Sign Vital Signs Vital Signs Date Time Temp Pulse Resp B/P (MAP) Pulse Ox O2 Delivery O2 Flow Rate FiO2 11/06/19 11:01 102.4 76 16 130/71 (90) 90 Room Air 102.4 11/05/19 07:00 2.0 Physical Exam PHYSICAL EXAM lethargy and malaise, appears ill, skin is warm to touch and flushed Labs Lab Laboratory Tests Test 11/06/19 03:17 White Blood Count 8.6 x10^3/uL (4.0-11.0) Red Blood Count 3.53 x10^6/uL (3.50-5.40) Hemoglobin 11.2 g/dL (12.0-15.5) Hematocrit 33.1 % (36.0-47.0) Mean Corpuscular Volume 94 fL (79-100) Mean Corpuscular Hemoglobin 32 pg (25-35) Mean Corpuscular Hemoglobin Concent 34 g/dL (31-37) Red Cell Distribution Width 13.6 % (11.5-14.5) Platelet Count 155 x10^3/uL (140-400) Neutrophils (%) (Auto) 74 % (31-73) Lymphocytes (%) (Auto) 16 % (24-48) Monocytes (%) (Auto) 8 % (0-9) Eosinophils (%) (Auto) 2 % (0-3) Basophils (%) (Auto) 1 % (0-3) Neutrophils # (Auto) 6.3 x10^3/uL (1.8-7.7) Lymphocytes # (Auto) 1.4 x10^3/uL (1.0-4.8) Monocytes # (Auto) 0.7 x10^3/uL (0.0-1.1) Eosinophils # (Auto) 0.1 x10^3/uL (0.0-0.7) Basophils # (Auto) 0.1 x10^3/uL (0.0-0.2) Sodium Level 138 mmol/L (136-145) Potassium Level 3.7 mmol/L (3.5-5.1) Chloride Level 105 mmol/L (98-107) Carbon Dioxide Level 27 mmol/L (21-32) Anion Gap 6 (6-14) Blood Urea Nitrogen 9 mg/dL (7-20) Creatinine 0.9 mg/dL (0.6-1.0) Estimated GFR (Cockcroft-Gault) 64.3 Glucose Level 124 mg/dL (70-99) Calcium Level 8.3 mg/dL (8.5-10.1) Micro IMPRESSION: Infiltration about the right kidney and proximal right ureter is nonspecific but may be seen with pyelonephritis. This may correlate with urinalysis. Hepatomegaly and hepatic steatosis. No bowel obstruction. Changes of gastric bypass are seen. Objective Assessment Fever can run for 5 days with pyelo Pyelonephritis - Rocephin and levoflox PCN allergy - has had amox Leukocytosis - better obesity Plan Plan of Care Cont Rocephin 2 gm q 24 Levoflox to po F/u labs and cults hyperglycemia per primary Thank you # [phone] CONSTANCE MAK MD Nov 06, 2019 12:07
[2019-11-06] MEDS: cefTRIAXone IV Push 2 GM VIAL. IVP SCH (12:25)
--- NOTE | 2019-11-06 12:32 | NUR ---
SW following for discharge planning. Reviewed chart and spoke with RN. Met with pt who is a/o and able to make need known. 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 Pt stated her truck is currently safely parked in [place]. Pt on room air. Pt started on IV Rocephin. Pt has a fever of 102.4. SW to continue following for discharge planning.
--- NOTE | 2019-11-06 13:03 | CONS ---
DATE OF CONSULTATION: 11/06/2019 INFECTIOUS DISEASE CONSULTATION LOCATION: The patient is in room 424. REQUESTING PHYSICIAN: Dr. Karimi. REASON FOR CONSULTATION: Pyelonephritis and fever. HISTORY OF PRESENT ILLNESS: The patient is a pleasant 59-year-old female with a history of obesity and has had previous urinary tract infections in the past. 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 Over the last several days, she noticed that her urine became darker, had an odor to it and she developed pain in her low back, starting on Saturday. On Saturday, she began to have fever. She presented to [facility]. On the evening of the ,she had a white count of 11.8. Urinalysis was concerning for urinary tract infection. She underwent a CT scan of the abdomen and pelvis, which showed infiltration of the right kidney, proximal right ureter, nonspecific, may be seen with pyelonephritis. Chest x-ray showed no acute cardiopulmonary process. She received a dose of Rocephin and has now been placed on Levaquin, but she continues to run fevers, hence I was consulted. Currently, the patient is sitting in a chair. She continues to again run fevers. She has no sinus congestion or sore throat, but she does have occasional cough and phlegm. No gross shortness of air. No nausea, vomiting. No diarrhea, no rashes, no joint aches. She denies any ill contacts. PAST MEDICAL HISTORY: Positive for obesity as well as urinary tract infections. PAST SURGICAL HISTORY: Positive for nasal surgery as a child. Also, has had a tonsillectomy, had carpal tunnel, gastric bypass, tubal and partial hysterectomy. REVIEW OF SYSTEMS: Otherwise negative. ALLERGIES: LISTED PENICILLIN, SHE CAN ACTUALLY TAKE IT. SHE STATES SHE HAD ALLERGIC REACTION TO [employer]ES THAT HAD MOLD ON IT, SO IT WAS ASSUMED THAT WAS PENICILLIN, BUT SHE HAS TOLERATED AMOXICILLIN. SOCIAL HISTORY: No tobacco, no alcohol. Denies any substances. 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 FAMILY HISTORY: Noncontributory. CURRENT MEDICATIONS: Include levofloxacin 500 mg IV. She did receive a dose of Rocephin yesterday, lactobacillus, and p.r.n. medications. PHYSICAL EXAMINATION: VITAL SIGNS: T-max 102.4, pulse 76, respirations 16, blood pressure 130/70, satting 90% on room air. CONSTITUTIONAL: She is sitting in a chair. She is cooperative. She was talking on the phone without complications. HEENT: Pupils are equal and reactive. Questionable early cataracts. Normal conjunctivae. Oral cavity, pharynx is clear. NECK: Supple. Good range of motion. LUNGS: Clear to auscultation. HEART: S1, S2. ABDOMEN: Obese, soft, no guarding or rebound. She does have some CVA tenderness particularly on the right side. EXTREMITIES: No clubbing, cyanosis or gross edema. SKIN: Warm to touch without signs of rash. NEUROLOGIC: She is nonfocal. PSYCHIATRIC: Affect is pleasant. LABORATORY DATA: White count today 8.6, hemoglobin 11.2, platelets 155, neutrophils 74, lymphs are 16, glucose 124. Normal liver function study tests. Creatinine was 0.9. Urinalysis is concerning for urinary tract infection. Cultures are pending. IMPRESSION: 1. Fever, did run fevers for 5 days with pyelonephritis. 2. Pyelonephritis, on Rocephin and levofloxacin. 3. PENICILLIN ALLERGY, HAS AMOXICILLIN. 4. Leukocytosis, better. 5. Obesity. RECOMMENDATIONS: For now, continue Rocephin at 2 grams IV q. 24, levofloxacin to p.o. Follow up labs and cultures. Hyperglycemia per primary. Thank you for the patient's care. If you have questions, please do not hesitate to contact me. CONSTANCE MAK MD DR: LUCY/rj JOB#: [id number] / [id number]
[2019-11-06 15:09] VITALS: BP 116/58
[2019-11-06 19:00] VITALS: BP 137/72
[2019-11-06] MEDS: LACTOBACILLUS RHAMNOSUS GG 1 CAPSULE. PO SCH (21:22)
[2019-11-06 23:00] VITALS: BP 127/56
[2019-11-07 03:01] VITALS: BP 119/66
[2019-11-07] MEDS: ACETAMINOPHEN 325 MG TABLET. PO PRN ×2 (04:11→19:36)
[2019-11-07 06:54] LABS: CALCIUM 8.7 mg/dL (8.5-10.1); CREATININE 0.7 mg/dL (0.6-1.0); GFR 85.9; POTASSIUM 3.7 mmol/L (3.5-5.1)
[2019-11-07 07:00] VITALS: BP 103/57
[2019-11-07 07:20] LABS: BASO % 1 % (0-3); EOS # 0.2 x10^3/uL (0.0-0.7); EOS % 3 % (0-3); HEMATOCRIT 33.6 % (36.0-47.0); HEMOGLOBIN 11.5 g/dL (12.0-15.5); LYMPH # 1.4 x10^3/uL (1.0-4.8); LYMPH % 24 % (24-48); MEAN CORPUSCULAR HEMOGLOBIN 32 pg (25-35); MEAN CORPUSCULAR HGB CONC 34 g/dL (31-37); MEAN CORPUSCULAR VOLUME 93 fL (79-100); MONO # 0.6 x10^3/uL (0.0-1.1); MONO % 10 % (0-9); NEUT # 3.8 x10^3/uL (1.8-7.7); NEUT % 63 % (31-73); PLATELET COUNT 171 x10^3/uL (140-400)
[2019-11-07] MEDS: ENOXAPARIN 40 MG/0.4 ML SYRINGE. SQ SCH (10:48)
[2019-11-07] MEDS: LACTOBACILLUS RHAMNOSUS GG 1 CAPSULE. PO SCH (10:48)
[2019-11-07 11:00] VITALS: BP 130/62
--- NOTE | 2019-11-07 12:13 | PDOC ---
PROGRESS NOTES Chief Complaint Chief Complaint sepsis ruled out, afebrile for the last 24 hours Pyelonephritis currently on Rocephin and levofloxacin severe back and flank pain as a consequence of the above morbid obesity, BMI 47, s/p gastric bypass, weight returned Plan Follow urine culture Antibiotic therapy as per mergers and acquisitions consultant Hopefully dismiss in the a.m. History of Present Illness History of Present Illness no acute events reported overnight, case discussed with nursing staff patient in no acute distress no complaints during my visit Vitals Vitals Vital Signs Date Time Temp Pulse Resp B/P (MAP) Pulse Ox O2 Delivery O2 Flow Rate FiO2 11/07/19 11:00 98.4 61 16 130/62 (84) 99 Room Air 98.4 Physical Exam Physical Exam In no acute distress Gen.: Morbidly obese in no apparent distress Head: Normal shape atraumatic Eyes: Pupils equal reactive to light and accommodation, normal conjunctivae and lids Ears: Normal shape Nose: Normal shape no trauma Mouth: No exudates of the back of throat no thrush no lesions Neck: Supple no JVD no carotid bruit or lymphadenopathy no thyromegaly Chest: Lungs clear to auscultation with good inspiratory effort no crackles rales or rhonchi Cardiovascular: S1-S2 regular rhythm no murmurs gallops or rubs Abdomen: Bowel sounds present soft nontender no hepatosplenomegaly appreciated sign Extremities: No clubbing no cyanosis no edema peripheral pulses palpated bilaterally Neurological: Alert awake oriented in person time place and situation, cranial nerves II through XII intact, no motor or sensory deficits appreciated Psych: Appropriate mood, cooperative General: Alert, Oriented X3, Cooperative, mild distress Heart: Regular rate (tachy) Extremities: No cyanosis, Other (tr edema, r worse then left pedal) Skin: No rashes, No breakdown Labs LABS Laboratory Tests Test 11/07/19 05:05 White Blood Count 6.0 x10^3/uL (4.0-11.0) Red Blood Count 3.60 x10^6/uL (3.50-5.40) Hemoglobin 11.5 g/dL (12.0-15.5) Hematocrit 33.6 % (36.0-47.0) Mean Corpuscular Volume 93 fL (79-100) Mean Corpuscular Hemoglobin 32 pg (25-35) Mean Corpuscular Hemoglobin Concent 34 g/dL (31-37) Red Cell Distribution Width 13.0 % (11.5-14.5) Platelet Count 171 x10^3/uL (140-400) Neutrophils (%) (Auto) 63 % (31-73) Lymphocytes (%) (Auto) 24 % (24-48) Monocytes (%) (Auto) 10 % (0-9) Eosinophils (%) (Auto) 3 % (0-3) Basophils (%) (Auto) 1 % (0-3) Neutrophils # (Auto) 3.8 x10^3/uL (1.8-7.7) Lymphocytes # (Auto) 1.4 x10^3/uL (1.0-4.8) Monocytes # (Auto) 0.6 x10^3/uL (0.0-1.1) Eosinophils # (Auto) 0.2 x10^3/uL (0.0-0.7) Basophils # (Auto) 0.0 x10^3/uL (0.0-0.2) Sodium Level 141 mmol/L (136-145) Potassium Level 3.7 mmol/L (3.5-5.1) Chloride Level 104 mmol/L (98-107) Carbon Dioxide Level 27 mmol/L (21-32) Anion Gap 10 (6-14) Blood Urea Nitrogen 7 mg/dL (7-20) Creatinine 0.7 mg/dL (0.6-1.0) Estimated GFR (Cockcroft-Gault) 85.9 Glucose Level 111 mg/dL (70-99) Calcium Level 8.7 mg/dL (8.5-10.1) Comment Review of Relevant I have reviewed the following items jabier (where applicable) has been applied. Labs Laboratory Tests Test 11/06/19 03:17 11/07/19 05:05 White Blood Count 8.6 x10^3/uL (4.0-11.0) 6.0 x10^3/uL (4.0-11.0) Red Blood Count 3.53 x10^6/uL (3.50-5.40) 3.60 x10^6/uL (3.50-5.40) Hemoglobin 11.2 g/dL (12.0-15.5) 11.5 g/dL (12.0-15.5) Hematocrit 33.1 % (36.0-47.0) 33.6 % (36.0-47.0) Mean Corpuscular Volume 94 fL (79-100) 93 fL (79-100) Mean Corpuscular Hemoglobin 32 pg (25-35) 32 pg (25-35) Mean Corpuscular Hemoglobin Concent 34 g/dL (31-37) 34 g/dL (31-37) Red Cell Distribution Width 13.6 % (11.5-14.5) 13.0 % (11.5-14.5) Platelet Count 155 x10^3/uL (140-400) 171 x10^3/uL (140-400) Neutrophils (%) (Auto) 74 % (31-73) 63 % (31-73) Lymphocytes (%) (Auto) 16 % (24-48) 24 % (24-48) Monocytes (%) (Auto) 8 % (0-9) 10 % (0-9) Eosinophils (%) (Auto) 2 % (0-3) 3 % (0-3) Basophils (%) (Auto) 1 % (0-3) 1 % (0-3) Neutrophils # (Auto) 6.3 x10^3/uL (1.8-7.7) 3.8 x10^3/uL (1.8-7.7) Lymphocytes # (Auto) 1.4 x10^3/uL (1.0-4.8) 1.4 x10^3/uL (1.0-4.8) Monocytes # (Auto) 0.7 x10^3/uL (0.0-1.1) 0.6 x10^3/uL (0.0-1.1) Eosinophils # (Auto) 0.1 x10^3/uL (0.0-0.7) 0.2 x10^3/uL (0.0-0.7) Basophils # (Auto) 0.1 x10^3/uL (0.0-0.2) 0.0 x10^3/uL (0.0-0.2) Sodium Level 138 mmol/L (136-145) 141 mmol/L (136-145) Potassium Level 3.7 mmol/L (3.5-5.1) 3.7 mmol/L (3.5-5.1) Chloride Level 105 mmol/L (98-107) 104 mmol/L (98-107) Carbon Dioxide Level 27 mmol/L (21-32) 27 mmol/L (21-32) Anion Gap 6 (6-14) 10 (6-14) Blood Urea Nitrogen 9 mg/dL (7-20) 7 mg/dL (7-20) Creatinine 0.9 mg/dL (0.6-1.0) 0.7 mg/dL (0.6-1.0) Estimated GFR (Cockcroft-Gault) 64.3 85.9 Glucose Level 124 mg/dL (70-99) 111 mg/dL (70-99) Calcium Level 8.3 mg/dL (8.5-10.1) 8.7 mg/dL (8.5-10.1) Laboratory Tests Test 11/07/19 05:05 White Blood Count 6.0 x10^3/uL (4.0-11.0) Red Blood Count 3.60 x10^6/uL (3.50-5.40) Hemoglobin 11.5 g/dL (12.0-15.5) Hematocrit 33.6 % (36.0-47.0) Mean Corpuscular Volume 93 fL (79-100) Mean Corpuscular Hemoglobin 32 pg (25-35) Mean Corpuscular Hemoglobin Concent 34 g/dL (31-37) Red Cell Distribution Width 13.0 % (11.5-14.5) Platelet Count 171 x10^3/uL (140-400) Neutrophils (%) (Auto) 63 % (31-73) Lymphocytes (%) (Auto) 24 % (24-48) Monocytes (%) (Auto) 10 % (0-9) Eosinophils (%) (Auto) 3 % (0-3) Basophils (%) (Auto) 1 % (0-3) Neutrophils # (Auto) 3.8 x10^3/uL (1.8-7.7) Lymphocytes # (Auto) 1.4 x10^3/uL (1.0-4.8) Monocytes # (Auto) 0.6 x10^3/uL (0.0-1.1) Eosinophils # (Auto) 0.2 x10^3/uL (0.0-0.7) Basophils # (Auto) 0.0 x10^3/uL (0.0-0.2) Sodium Level 141 mmol/L (136-145) Potassium Level 3.7 mmol/L (3.5-5.1) Chloride Level 104 mmol/L (98-107) Carbon Dioxide Level 27 mmol/L (21-32) Anion Gap 10 (6-14) Blood Urea Nitrogen 7 mg/dL (7-20) Creatinine 0.7 mg/dL (0.6-1.0) Estimated GFR (Cockcroft-Gault) 85.9 Glucose Level 111 mg/dL (70-99) Calcium Level 8.7 mg/dL (8.5-10.1) Microbiology 11/06/19 Blood Culture - Preliminary, Resulted NO GROWTH AFTER 1 DAY Medications Current Medications Fentanyl Citrate (Fentanyl 2ml Vial) 50 mcg 1X ONCE IVP Last administered on 11/04/19at 22:12; Start 11/04/19 at 22:15; Stop 11/04/19 at 22:16; Status DC Ondansetron HCl (Zofran) 4 mg 1X ONCE IVP Last administered on 11/04/19at 22:11; Start 11/04/19 at 22:15; Stop 11/04/19 at 22:16; Status DC Morphine Sulfate (Morphine Sulfate) 2 mg 1X ONCE IV Last administered on 11/05/19at 00:19; Start 11/05/19 at 00:00; Stop 11/05/19 at 00:02; Status DC Ceftriaxone Sodium (Rocephin) 1 gm 1X ONCE IVP Last administered on 11/05/19at 00:18; Start 11/05/19 at 00:00; Stop 11/05/19 at 00:02; Status DC Acetaminophen (Tylenol) 1,000 mg 1X ONCE PO Last administered on 11/05/19at 00:19; Start 11/05/19 at 00:30; Stop 11/05/19 at 00:31; Status DC Ondansetron HCl (Zofran) 4 mg PRN Q8HRS PRN IV NAUSEA/VOMITING; Start 11/05/19 at 01:30; Stop 11/06/19 at 01:29; Status DC Morphine Sulfate (Morphine Sulfate) 2 mg PRN Q2HR PRN IV PAIN Last administered on 11/05/19 08:32; Start 11/05/19 at 01:30; Stop 11/06/19 at 01:29; Status DC Sodium Chloride 1,000 ml @ 125 mls/hr Q8H IV Last administered on 11/05/19at 08:33; Start 11/05/19 at 01:30; Stop 11/06/19 at 01:29; Status DC Ceftriaxone Sodium (Rocephin) 1 gm Q24H IVP Last administered on 11/05/19at 21:52; Start 11/05/19 at 21:00; Stop 11/06/19 at 10:14; Status DC Oxycodone/ Acetaminophen (Percocet 5/325) 1 tab PRN Q4HRS PRN PO MODERATE PAIN, SEVERE PAIN Last administered on 11/06/19at 23:26; Start 11/05/19 at 08:45 Enoxaparin Sodium (Lovenox Per Pharmacy Prophylaxis Dosing) 1 each PRN DAILY PRN MC SEE COMMENTS; Start 11/05/19 at 08:45; Stop 11/06/19 at 11:05; Status DC Enoxaparin Sodium (Lovenox 40mg Syringe) 40 mg BID SQ Last administered on 11/07/19at 10:48; Start 11/05/19 at 09:00 Acetaminophen (Tylenol) 650 mg PRN Q6HRS PRN PO MILD PAIN / TEMP Last administered on 11/07/19at 04:11; Start 11/06/19 at 08:45 Levofloxacin/ Dextrose 100 ml @ 100 mls/hr Q24H IV Last administered on 11/06/19at 11:20; Start 11/06/19 at 10:30; Stop 11/06/19 at 12:01; Status DC Lactobacillus Rhamnosus (Culturelle) 1 cap BID PO Last administered on 11/07/19at 10:48; Start 11/06/19 at 21:00 Ceftriaxone Sodium (Rocephin) 2 gm Q24H IVP Last administered on 11/06/19at 12: 25; Start 11/06/19 at 12:00 Levofloxacin (Levaquin) 500 mg DAILY06 PO Last administered on 11/07/19at 05:57; Start 11/07/19 at 06:00 Active Scripts Active Reported Once Daily (Multivitamin) 1 Each Tablet 1 Tab PO DAILY 30 Days Vitals/I & O Vital Sign - Last 24 Hours 11/06/19 11/06/19 11/06/19 11/06/19 15:09 19:00 20:00 23:00 Temp 98.3 98.3 99.9 98.3 98.3 99.9 Pulse 60 63 66 Resp 18 20 B/P (MAP) 116/58 (77) 137/72 (93) 127/56 (79) Pulse Ox 93 95 96 O2 Delivery Room Air Room Air Room Air Room Air 11/07/19 11/07/19 11/07/19 11/07/19 00:45 03:01 07:00 11:00 Temp 98.3 98.2 98.9 98.4 98.3 98.2 98.9 98.4 Pulse 63 69 61 Resp 20 18 16 B/P (MAP) 119/66 (83) 103/57 (72) 130/62 (84) Pulse Ox 94 97 99 O2 Delivery Room Air Room Air Room Air Intake and Output 11/06/19 11/06/19 11/07/19 15:00 23:00 07:00 Intake Total 0 ml Balance 0 ml DANTE MEJIA MD Nov 07, 2019 12:13
--- NOTE | 2019-11-07 12:21 | PDOC ---
Infectious Disease Note Subjective Subjective Feeling pretty good No more back pain Urinating without problem Fevers settling down Eating and walking No BM iin 4 days. Denies N/V/cramps ROS ROS per HPI Vital Sign Vital Signs Vital Signs Date Time Temp Pulse Resp B/P (MAP) Pulse Ox O2 Delivery O2 Flow Rate FiO2 11/07/19 11:00 98.4 61 16 130/62 (84) 99 Room Air 98.4 Physical Exam PHYSICAL EXAM CONSTITUTIONAL: Sitting in the chair, alert, smiling HEENT: Pupils are equal and reactive. Questionable early cataracts. Normal conjunctivae. Oral cavity, pharynx is clear. NECK: Supple. Good range of motion. LUNGS: Clear to auscultation. HEART: S1, S2. ABDOMEN: Obese, soft, no guarding or rebound. EXTREMITIES: No clubbing, cyanosis or gross edema. SKIN: Warm to touch without signs of rash. NEUROLOGIC: She is nonfocal. PSYCHIATRIC: Affect is pleasant. Labs Lab Laboratory Tests Test 11/07/19 05:05 White Blood Count 6.0 x10^3/uL (4.0-11.0) Red Blood Count 3.60 x10^6/uL (3.50-5.40) Hemoglobin 11.5 g/dL (12.0-15.5) Hematocrit 33.6 % (36.0-47.0) Mean Corpuscular Volume 93 fL (79-100) Mean Corpuscular Hemoglobin 32 pg (25-35) Mean Corpuscular Hemoglobin Concent 34 g/dL (31-37) Red Cell Distribution Width 13.0 % (11.5-14.5) Platelet Count 171 x10^3/uL (140-400) Neutrophils (%) (Auto) 63 % (31-73) Lymphocytes (%) (Auto) 24 % (24-48) Monocytes (%) (Auto) 10 % (0-9) Eosinophils (%) (Auto) 3 % (0-3) Basophils (%) (Auto) 1 % (0-3) Neutrophils # (Auto) 3.8 x10^3/uL (1.8-7.7) Lymphocytes # (Auto) 1.4 x10^3/uL (1.0-4.8) Monocytes # (Auto) 0.6 x10^3/uL (0.0-1.1) Eosinophils # (Auto) 0.2 x10^3/uL (0.0-0.7) Basophils # (Auto) 0.0 x10^3/uL (0.0-0.2) Sodium Level 141 mmol/L (136-145) Potassium Level 3.7 mmol/L (3.5-5.1) Chloride Level 104 mmol/L (98-107) Carbon Dioxide Level 27 mmol/L (21-32) Anion Gap 10 (6-14) Blood Urea Nitrogen 7 mg/dL (7-20) Creatinine 0.7 mg/dL (0.6-1.0) Estimated GFR (Cockcroft-Gault) 85.9 Glucose Level 111 mg/dL (70-99) Calcium Level 8.7 mg/dL (8.5-10.1) Micro Microbiology 11/06/19 Blood Culture - Preliminary, Resulted NO GROWTH AFTER 1 DAY Objective Assessment Fever, did run fevers for 5 days with pyelonephritis, improved Pyelonephritis, on Rocephin and levofloxacin. PENICILLIN ALLERGY, HAS AMOXICILLIN. Leukocytosis, better. Obesity. Constipation Plan Plan of Care Cont Rocephin 2 gm q 24 Levoflox to po Probiotics F/u labs and cults hyperglycemia per primary Bowel regimen D/c rocephin. had levoflox today Can D/c home with Keflex 500 mg po QID for 10 days starting 11/07 to cover for pyelo Rx written. business card provided Can F/u ID office 10 days please call for appt. D/w nursing URINE CULTURE RES 1 Final Escherichia coli Greater than 100,000 colony forming units per mL Cefazolin <=4 ug/mL Cefazolin with an DORINDA <=16 predicts susceptibility to the oral agents cefaclor, cefdinir, cefpodoxime, cefprozil, cefuroxime, cephalexin, and loracarbef when used for therapy of uncomplicated urinary tract infections due to E. coli, Klebsiella pneumoniae, and Proteus mirabilis. ANTIMICROBIAL SUSCEPTIBILITY Final Comment S = Susceptible; I = Intermediate; R = Resistant P = Positive; N = Negative MICS are expressed in micrograms per mL Antibiotic RSLT#1 RSLT#2 RSLT#3 RSLT#4 Amoxicillin/Clavulanic Acid S =8 Ampicillin R>=32 Cefepime S<=0.12 Ceftriaxone S<=0.25 Cefuroxime S =4 Ciprofloxacin S<=0.25 Ertapenem S<=0.12 Gentamicin S<=1 Imipenem S<=0.25 Levofloxacin S<=0.12 Meropenem S<=0.25 Nitrofurantoin S<=16 Piperacillin/Tazobactam S<=4 Tetracycline R>=16 Tobramycin S<=1 MARGI JHA APRN Nov 07, 2019 12:19 CONSTANCE MAK MD Nov 07, 2019 16:24
[2019-11-07] MEDS: cefTRIAXone IV Push 2 GM VIAL. IVP SCH (12:30)
[2019-11-07 14:00] VITALS: BP 134/75
[2019-11-07] MEDS ORDERED: CEPHALEXIN 250 MG CAPSULE. PO SCH (17:00)
[2019-11-07 19:00] VITALS: BP 134/70
--- NOTE | 2019-11-07 20:02 | NUR ---
Patient discharged to home at 1955 hours, arrived to pick patient up at this time. Discharge paperwork completed and placed in chart by day shift nurse.
--- NOTE | 2019-11-08 08:44 | PDOC3 ---
Discharge Summary Visit Information Date of Admission: Nov 05, 2019 Date of Discharge: Nov 07, 2019 Admitting Diagnosis Comment: back pain sepsis, UTI pyelonephritis, morbid obesity, BMI 47, s/p gastric bypass, weight returned Final Diagnosis sepsis ruled out, afebrile for the last 24 hours Pyelonephritis currently on Rocephin and levofloxacin severe back and flank pain as a consequence of the above morbid obesity, BMI 47, s/p gastric bypass, Brief Hospital Course Allergies Allergies Coded Allergies Type Severity Reaction Last Updated Verified Penicillins Allergy Intermediate Hives. 11/06/19 Yes Vital Signs Vital Signs Date Time Temp Pulse Resp B/P (MAP) Pulse Ox O2 Delivery O2 Flow Rate FiO2 11/07/19 19:00 98.6 65 20 134/70 (91) 96 Room Air 98.6 11/07/19 14:00 96.0 Lab Results Laboratory Tests Test 11/07/19 05:05 White Blood Count 6.0 x10^3/uL (4.0-11.0) Red Blood Count 3.60 x10^6/uL (3.50-5.40) Hemoglobin 11.5 g/dL (12.0-15.5) Hematocrit 33.6 % (36.0-47.0) Mean Corpuscular Volume 93 fL (79-100) Mean Corpuscular Hemoglobin 32 pg (25-35) Mean Corpuscular Hemoglobin Concent 34 g/dL (31-37) Red Cell Distribution Width 13.0 % (11.5-14.5) Platelet Count 171 x10^3/uL (140-400) Neutrophils (%) (Auto) 63 % (31-73) Lymphocytes (%) (Auto) 24 % (24-48) Monocytes (%) (Auto) 10 % (0-9) Eosinophils (%) (Auto) 3 % (0-3) Basophils (%) (Auto) 1 % (0-3) Neutrophils # (Auto) 3.8 x10^3/uL (1.8-7.7) Lymphocytes # (Auto) 1.4 x10^3/uL (1.0-4.8) Monocytes # (Auto) 0.6 x10^3/uL (0.0-1.1) Eosinophils # (Auto) 0.2 x10^3/uL (0.0-0.7) Basophils # (Auto) 0.0 x10^3/uL (0.0-0.2) Sodium Level 141 mmol/L (136-145) Potassium Level 3.7 mmol/L (3.5-5.1) Chloride Level 104 mmol/L (98-107) Carbon Dioxide Level 27 mmol/L (21-32) Anion Gap 10 (6-14) Blood Urea Nitrogen 7 mg/dL (7-20) Creatinine 0.7 mg/dL (0.6-1.0) Estimated GFR (Cockcroft-Gault) 85.9 Glucose Level 111 mg/dL (70-99) Calcium Level 8.7 mg/dL (8.5-10.1) Brief Hospital Course Ms. Marie is a 59 old who presented with fever and CVA tenderness secondary to pyelonephritis. Patient was seen in consultation by infectious disease and she was started initially on broad-spectrum antibiotics with Rocephin. The patient had a quite uneventful hospital stay and subsequently he was transitioned to Rocephin and levofloxacin by mouth, patient's cultures were reported on the day of discharge and she was the escalated to Keflex to finish her course of antibiotics by mouth in the outpatient setting. She was hemodynamically stable and in no acute distress and in good spirits to be discharged home. Signs and symptoms of alarm were discussed prior to dismissal all of her concerns were addressed to the best of my abilities Physical exam please see today's progress note Discharge Information Condition at Discharge: Improved Follow Up: Weeks Disposition/Orders: D/C to Home Scheduled Multivitamin (Once Daily) 1 Each Tablet, 1 TAB PO DAILY for vitamins for 30 Days, #30 Ref 0 (Reported) Entered as Reported by: FRAN HEDRICK on 11/05/19441 Last Taken: UNKNOWN on Unknown Date & Time Last Action: New Order on 11/05/19441 by DANTE العراقي MD Nov 08, 2019 08:44
[2019-11-08] MEDS ORDERED: CEPHALEXIN 250 MG CAPSULE. PO SCH (09:00)
== END 2019-11-07 20:01 | disposition home or self-care (01) | DRG 690 ==
LOC: ER 21:46 → 4 NORTH 11-05 01:30
PROVIDERS: ADMIT Internal Medicine; ATTEND Internal Medicine
DX: N12 Tubulo-interstitial nephritis, not specified as acute or chronic (principal); Z68.42 Body mass index [BMI] 45.0-49.9, adult; E66.01 Morbid (severe) obesity due to excess calories; K59.00 Constipation, unspecified; K76.0 Fatty (change of) liver, not elsewhere classified; M81.0 Age-related osteoporosis without current pathological fracture; Z87.440 Personal history of urinary (tract) infections; Z88.0 Allergy status to penicillin; Z90.711 Acquired absence of uterus with remaining cervical stump; Z98.84 Bariatric surgery status
CPT/HCPCS: 36415; 71045; 74176; 80048; 80053; 81001; 83690; 84484; 85007; 85025; 87040; 87086; 93005; 96374; 96375; 99285; J0696; J1650; J1956; J2270; J2405; J3010; J7030; G0378